=== PATIENT | female | born 1940 | race Caucasian/White ===

== ENCOUNTER → 2019-09-09 | Outpatient (CLI) | payer MEDICARE | END | disposition home or self-care (01) | LOC: SHCH 14:18 | PROVIDERS: ATTEND Internal Medicine Cardiovascular Disease | DX: I51.7 Cardiomegaly (principal); R01.1 Cardiac murmur, unspecified | CPT/HCPCS: 93306; 93356 ==

== ENCOUNTER 2022-08-14 08:14 | Observation (INO) | payer MEDICARE ==
[~2022-08-14] VITALS: Ht 167.6 cm; Wt 86.4 kg
[~2022-08-14 08:14] MED LIST: ALBUTEROL HFA; AMLO-257 PO; LETR2.5T7 PO; OMEP20CA12 PO
[2022-08-14 09:41] LABS: BASOPHILS % (AUTO) 0.3 % (0.0-5.0); EOSINOPHILS % (AUTO) 1.1 % (0.0-8.0); HEMATOCRIT 40.1 % (36-48); LYMPHOCYTES % (AUTO) 8.9 % (21.0-51.0); MEAN CORPUSCULAR HEMOGLOBIN 28.6 pg (27.0-33.0); MEAN CORPUSCULAR HGB CONC 33.7 g/dL (32.0-36.0); MONOCYTES % (AUTO) 6.1 % (3.0-13.0); NEUTROPHILS % (AUTO) 83.2 % (40.0-77.0); PLATELET COUNT (AUTO) 206 K/uL (130-400); RED BLOOD CELL COUNT(AUTO) 4.72 MIL/uL (4.00-5.50); RED CELL DISTRIBUTION WIDTH 12.7 % (11.0-15.5); WHITE BLOOD COUNT (AUTO) 12.2 K/uL (4.8-10.8)
[2022-08-14 09:48] LABS: CREATININE 1.1 mg/dL (0.5-1.5); POTASSIUM 3.2 mmol/L (3.5-5.1)
[2022-08-14 09:52] LABS: ALBUMIN 3.7 g/dL (3.5-5.0); CRP QUANTITATIVE 6.7 mg/L (0.00-9.0); TOTAL PROTEIN, SERUM 7.8 g/dL (6.0-8.3)
[2022-08-14] MEDS ORDERED: IOHEXOL-350 50ML VIAL IV ONE (09:57)
[2022-08-14] MEDS ORDERED: POTASSIUM BICARB/CIT AC 25 MEQ TABLET.EFF PO ONE (10:00)
[2022-08-14] MEDS ORDERED: MORPHINE 4 MG SYG IM ONE (10:00)
[2022-08-14] MEDS ORDERED: ACETAMINOPHEN 500 MG TABLET PO ONE (11:00)
[2022-08-14] MEDS ORDERED: 0.9% NACL 500ML IV.SOLN 500 ML IV ONE (11:00)
[2022-08-14] MEDS ORDERED: CLINDAMYCIN IVPB 600MG/50ML 50 ML IV ONE (11:00)
[2022-08-14] MEDS ORDERED: VANCOMYCIN PROTOCOL PER PHARMACY IV SCH (15:00)
[2022-08-14] MEDS ORDERED: COMPOUND IV REFRIGERATED 1 EACH IVSOLN MISC PRN (15:30)
[2022-08-14] MEDS: VANCOMYCIN 1.25 GM/250 ML BAG 250 ML IV SCH (16:04)
[2022-08-14] MEDS ORDERED: ONDANSETRON 4MG INJ IVP PRN (17:30)
[2022-08-14] MEDS ORDERED: ACETAMINOPHEN 325 MG TAB PO PRN (17:30)
[2022-08-14] MEDS ORDERED: MORPHINE 2 MG SYG IVP PRN (17:30)
[2022-08-14 17:35] VITALS: BP_SYST 129
[2022-08-14] MEDS ORDERED: POTASSIUM CHLORIDE 20MEQ/100ML 100 ML IV PRN (19:30)
[2022-08-14] MEDS ORDERED: POTASSIUM CHLORIDE 10% ELIXIR 20 MEQ/15 ML UDCUP PO PRN (19:30)
[2022-08-14 19:50] VITALS: BP 155/68
[2022-08-14] MEDS: DEXTROSE 5 % AND 0.9 % NACL 1,000 ML IV SCH (20:12)
[2022-08-14 23:25] VITALS: BP 140/77
[2022-08-15 06:50] LABS: HEMATOCRIT 33.9 % (36-48); MEAN CORPUSCULAR HEMOGLOBIN 28.9 pg (27.0-33.0); MEAN CORPUSCULAR HGB CONC 33.6 g/dL (32.0-36.0); RED BLOOD CELL COUNT(AUTO) 3.94 MIL/uL (4.00-5.50); RED CELL DISTRIBUTION WIDTH 12.7 % (11.0-15.5); WHITE BLOOD COUNT (AUTO) 9.5 K/uL (4.8-10.8)
[2022-08-15 07:05] LABS: CREATININE 0.9 mg/dL (0.5-1.5); MAGNESIUM 1.3 mg/dL (1.80-2.40); POTASSIUM 3.5 mmol/L (3.5-5.1); TOTAL PROTEIN, SERUM 6.6 g/dL (6.0-8.3)
[2022-08-15 07:50] VITALS: BP 136/68
[2022-08-15] MEDS: KCL 20 MEQ ERTAB PO PRN ×2 (08:22→11:34)
[2022-08-15] MEDS: ENOXAPARIN SODIUM 30 MG/0.3 ML SQ SCH (08:22)
[2022-08-15] MEDS: DEXTROSE 5 % AND 0.9 % NACL 1,000 ML IV SCH (08:29)
[2022-08-15 11:25] VITALS: BP 140/68
[2022-08-15] MEDS ORDERED: MAGNESIUM 4GM PREMIX 100ML 100 ML IV SCH (12:30)
[2022-08-15 15:50] VITALS: BP 131/63
[2022-08-15] MEDS: VANCOMYCIN 1.25 GM/250 ML BAG 250 ML IV SCH (15:52)
[2022-08-15 19:30] VITALS: BP 163/70
[2022-08-15 23:15] VITALS: BP 139/73
[2022-08-16] MEDS: DEXTROSE 5 % AND 0.9 % NACL 1,000 ML IV SCH (02:48)
[2022-08-16 02:50] VITALS: BP 147/71
[2022-08-16 07:08] LABS: HEMATOCRIT 36.4 % (36-48); MEAN CORPUSCULAR HEMOGLOBIN 28.2 pg (27.0-33.0); MEAN CORPUSCULAR HGB CONC 32.1 g/dL (32.0-36.0); MEAN CORPUSCULAR VOLUME 87.7 fL (79-99); RED BLOOD CELL COUNT(AUTO) 4.15 MIL/uL (4.00-5.50); WHITE BLOOD COUNT (AUTO) 7.9 K/uL (4.8-10.8)
[2022-08-16 07:23] LABS: CREATININE 0.8 mg/dL (0.5-1.5); POTASSIUM 3.9 mmol/L (3.5-5.1)
[2022-08-16 07:25] VITALS: BP 139/64
[2022-08-16] MEDS: ENOXAPARIN SODIUM 30 MG/0.3 ML SQ SCH (09:00)
[2022-08-16] MEDS ORDERED: CLIN-141 PO ×2 (11:30→11:31)
== END 2022-08-16 12:40 | disposition home or self-care (01) ==
LOC: EDH 08:14 → EDHIP 16:07 → WSH 17:40
PROVIDERS: ADMIT Internal Medicine Infectious Disease; ATTEND Internal Medicine Infectious Disease
DX: A41.9 Sepsis, unspecified organism (principal); Z20.822 Contact with and (suspected) exposure to COVID-19; K11.21 Acute sialoadenitis; E87.6 Hypokalemia; D72.829 Elevated white blood cell count, unspecified; E66.9 Obesity, unspecified; M19.90 Unspecified osteoarthritis, unspecified site; E78.00 Pure hypercholesterolemia, unspecified; I10 Essential (primary) hypertension; R13.10 Dysphagia, unspecified; E86.0 Dehydration; Z85.3 Personal history of malignant neoplasm of breast; Z96.653 Presence of artificial knee joint, bilateral; Z88.0 Allergy status to penicillin; Z79.899 Other long term (current) drug therapy
CPT/HCPCS: 96361 ×3; 96365; 96366 ×2; 96368; 99285; 82550; 80053 ×2; 85025; 87880; 87804 ×2; 86140; 36415 ×3; 87635; 70491; 96372; 83735 ×2; 85027 ×2; 80048; G0378 ×45; C9803; J7042 ×4; J7040; J3490; Q9967; J1650 ×2; J3475

== ENCOUNTER → 2024-05-23 | Outpatient (CLI) | payer MEDICARE ==
[~2024-05-23] MED LIST changes: +CLIN-141 PO
--- NOTE | 2024-05-23 16:11 | HMCSR ---
APPROVED REPORT EXAM: Two-dimensional and M-mode echocardiogram with Doppler and color Doppler. INDICATION ICD: I48.0 2D Dimensions RVDd3.4 cmLVEF(%)45.2 (>50%)LVED Vol(simp.)110.0 mL IVSd1.2 (0.7-1.1cm)FS(%)22 %LVES Vol(simp.)54.0 mL LVDd4.0 (3.8-5.6cm)Ao Root(2D)3.3 (2.0-3.7cm)LVEF(%, simp.)51 % PWd1.0 (0.7-1.1cm)LVOT diam2.0 (1.8-2.4cm)LA ESV INDEX (BP)25.39 mL/m2 LVDs3.1 (2.5-4.0cm)IVC diam1.6 cm Aortic Valve AoV Vmax1.4 m/Nolan Peak GR7.9 mmHgLVOT Vmax1.1 m/s AoV VTI0.3 mAo Mean GR4.4 mmHgLVOT VTI0.22 m DENIS (VMAX)2.6 cm2AVA (VTI) 2.6 cm2 Mitral Valve MV E Vmax52.7 cm/sDECEL Rsit697 ms MV A Uzjr414.2 cm/sP 1/2 T70 ms E/A ratio0.5MVA (PHT)3.1 cm2 MR Max PG67 mmHg TDI E/E' Oecpyy46.5E/E' Lateral8.9 Pulmonary Valve PV Vmax1.3 m/sPV VTI0.23 mPV Mean GR3 mmHg PV Peak GR6.3 mmHgPI End Hoda. Nelson 1.1 cm/s Tricuspid Valve TR Vmax2.3 m/sRAP (EST) 3 gmZnJAYN82.1 mmHg TR Peak GR22.1 mmHg Left Ventricle The left ventricle structure and function is normal. There is normal LV segmental wall motion. There is borderline to mild left ventricular hypertrophy. Sigmoid septum is present. LVEF is 50-55%. Grade 1 diastolic dysfunction. Right Ventricle The right ventricle is normal size. The right ventricular systolic function is normal. Atria The left atrium size is normal. The right atrium size is normal. Aortic Valve Aortic valve is trileaflet. Aortic valve is mildly calcified. Non coronary cusp is calcified and immo bile. Trace aortic regurgitation. There is no aortic valvular stenosis. Mitral Valve Mitral valve leaflets are mildly sclerotic but open well. Mitral regurgitation is trace. There is no mitral valve stenosis. Tricuspid Valve The tricuspid valve leaflets appear normal. There is trace tricuspid regurgitation. Pulmonic Valve Pulmonic valve is not well visualized. There is trace pulmonic valvular regurgitation. Great Vessels The aortic root is normal in size. The IVC is normal in size and collapses >50% with inspiration. Pericardium No pericardial effusion. Conclusion There is borderline to mild left ventricular hypertrophy. Sigmoid septum is present. LVEF is 50-55%. Grade 1 diastolic dysfunction. Aortic valve is trileaflet. Aortic valve is mildly calcified. Non coronary cusp is calcified and immobile. Trace aortic regurgitation. There is no aortic valvular stenosis.
== END | disposition home or self-care (01) ==
LOC: SHCH 14:55
PROVIDERS: ATTEND Internal Medicine Cardiovascular Disease
DX: I08.0 Rheumatic disorders of both mitral and aortic valves (principal); I48.0 Paroxysmal atrial fibrillation
CPT/HCPCS: 93306